=== PATIENT | male | born 1955 | race Caucasian/White ===

== ENCOUNTER → 2024-02-22 13:54 | Outpatient (REF) | payer OTHER, SELFPAY | LOC: RAD 13:54 | PROVIDERS: ATTENDING PHYSICIAN Family Medicine | DX: M25.519 Pain in unspecified shoulder (principal) | CPT/HCPCS: 73030 ==

== ENCOUNTER → 2024-04-08 13:54 | Outpatient (REF) | payer OTHER, SELFPAY | LOC: HWRCS 13:54 | PROVIDERS: ATTENDING PHYSICIAN Internal Medicine; FAMILY PHYSICIAN Family Medicine | DX: I25.10 Atherosclerotic heart disease of native coronary artery without angina pectoris (principal); R60.0 Localized edema; I49.1 Atrial premature depolarization | CPT/HCPCS: 93306 ==

== ENCOUNTER → 2024-05-24 12:47 | Outpatient (REF) | payer OTHER, SELFPAY | LOC: WOUND 12:47 | PROVIDERS: ATTENDING PHYSICIAN Surgery; FAMILY PHYSICIAN Family Medicine | DX: R21 Rash and other nonspecific skin eruption (principal); I87.2 Venous insufficiency (chronic) (peripheral); L30.9 Dermatitis, unspecified; I25.10 Atherosclerotic heart disease of native coronary artery without angina pectoris; E11.59 Type 2 diabetes mellitus with other circulatory complications; I35.0 Nonrheumatic aortic (valve) stenosis; Z95.5 Presence of coronary angioplasty implant and graft | CPT/HCPCS: 99203 ==